=== PATIENT | female | born 1990 | race Caucasian/White ===

== ENCOUNTER → 2017-02-25 | Day surgery (SDC) | payer BC ==
[2017-01-29 09:12] VITALS: Ht 152.4 cm; Wt 43.6 kg
[2017-02-13 12:20] LABS: BASO % 0.7 %; BASO ABS # 0.03 K/uL (0-0.2); COMPLETE YES; EOS % 1.7 %; HEMATOCRIT 39.9 % (37-47); IG% 0.2 %; LYMPH % 30.2 %; LYMPH ABS # 1.27 K/uL (1.2-3.4); MEAN CELL VOLUME 90.3 fL (80-100); MEAN CORPUSCULAR HEMOGLOBIN 32.1 pg (25-34); MEAN CORPUSCULAR HGB CONC 35.6 g/dl (32-36); MEAN PLATELET VOLUME 12.9 fL (7.4-10.4); MONO % 6.7 %; NEUT % 60.5 %; PLATELET COUNT 172 K/uL (130-400); RED BLOOD COUNT 4.42 M/uL (4.2-5.4); WHITE BLOOD COUNT 4.21 K/uL (4.8-10.8)
[~2017-02-25] VITALS: Ht 152.4 cm; Wt 43.6 kg
[~2017-02-25] MED LIST: ATROPINE SULFATE 0.1 MG/ML 5ML SYR IV PRN; BCPILLS PO; CEFAZOLIN 2000 MG/60 ML D5W IV SCH; DEXAMETHASONE SOD INJ 4 MG/ML VIAL ONE; EpHEDrine SULFATE INJ 50 MG/ML AMP IV PRN; FENTANYL CITRATE INJ 50 MCG/1 ML 2 ML VIAL IV PRN; FENTANYL CITRATE INJ 50 MCG/1 ML 2 ML VIAL ONE; HYDROmorphone INJ 1 MG/ML SYR IV PRN; KETOROLAC TROMETHAMINE 30 MG/ML VIAL IV. PRN; KETOROLAC TROMETHAMINE 30 MG/ML VIAL ONE; KUVAN PO; LIDOCAINE HCL 2% 2 ML VIAL (20MG/ML) ONE; LIDOCAINE/EPINEPHRINE 1% INJ 50 ML VIAL ONE; MIDAZOLAM HCL 1 MG/ML 2ML VIAL ONE; ONDANSETRON INJ 2 MG/ML 2 ML VIAL IV PRN; ONDANSETRON INJ 2 MG/ML 2 ML VIAL ONE; OXYCODONE/ACETAMINOPHEN 5-325 TAB PO PRN; PROMETHAZINE HCL INJ 12.5 MG in SODIUM CHLORIDE 0.9% 50ML 50 ML IV PRN; PROMETHAZINE HCL INJ 25 MG in SODIUM CHLORIDE 0.9% 50ML 50 ML IV PRN; PROPOFOL IV EMULSION 10 MG/ML 20 ML VIAL IV ONE; SODIUM CHLORIDE 0.9% 1000ML 1,000 ML IV SCH; [UNRECOGNIZED DRUG - CODE] PO
--- NOTE | 2017-02-25 09:27 | History & Physical Bridge - [place] ---
H&P Re-Evaluation Bridge Note: I have examined the patient, reviewed the History & Physical and in the interval since the performance of the History & Physical I have noted the following changes of clinical significance: Hymenectomy, exam under anesthesia, pap smear.
--- NOTE | 2017-02-25 11:30 | [facility] Post Operative Brief Note ---
Immediate Operative Summary Operative Date Feb 25, 2017. Pre-Operative Diagnosis Tight Hymenal Ring Post-Operative Diagnosis same Procedure(s) Performed Hymenectomy, Pap Smear Surgeon Dr. Radha Bailey [employer]ant Sw[employer] Surgeon(s) Moose Rosa MD Estimated Blood Loss 5ml Findings Tight hymenal ring, vagina otherwise normal. Cervix appears normal. Bimanual exam reveals no obvious masses. Specimens A. Hymen Tissue B. PAP Smear Drains none Anesthesia general Complication(s) None Disposition Recovery Room / PACU
--- NOTE | 2017-02-25 11:32 | Discharge Instructions-SurgCtr ---
Discharge Instructions Date of Service Feb 25, 2017. Visit Reason for Visit: Tight Hymenal Ring Discharge Discharge Diagnosis / Problem: s/p hymenectomy Discharge Goals Goal(s): Diagnostic testing, Therapeutic intervention Activity Recommendations Activity Limitations: per Instructions/Follow-up section Anesthesia . Post Anesthesia Instructions: If you have had General Anesthesia or IV Sedation: * Do not drive today. * Resume driving when surgeon permits. * Do not make important decisions or sign legal documents today. * Call surgeon for: 1. Temperature elevations greater than 101 degrees F. 2. Uncontrollable pain. 3. Excessive bleeding. 4. Persistent nausea and vomiting. 5. Medication intolerance (nausea, vomiting or rash). * For nausea and vomiting use only clear liquids such as: tea, soda, bouillon until nausea subsides, then gradually increase diet as tolerated. * If you have any concerns or questions, call your surgeon's office. If physician is unavailable and it is an emergency, call 911 or go to the nearest emergency room. . Instructions / Follow-Up Instructions / Follow-Up ACTIVITY RECOMMENDATIONS: * Avoid tampons, douching, hot tubs, pools, and intercourse until bleeding has stopped. * May shower as usual. * No strenuous activity for 24-48 hours. After 24-48 hours, you may do anything you feel like doing (driving and sports are okay). SPECIAL CARE INSTRUCTIONS: Special Diet: * Mild nausea may occur in the immediate post-operative period. * Take clear liquids such as tea, cola or bouillon until all nausea has subsided; you may then resume your normal diet. Special Care: * Light bleeding and vaginal spotting can last from a few days to 3-4 weeks. Call your doctor if bleeding becomes heavier than the heaviest part of your period. * Check your temperature twice a day for one week. If it goes above 100.4 degrees Fahrenheit (38.0 Celsius), notify your doctor. * Call your doctor's office for an appointment for 6 weeks after your surgery. FOLLOW-UP VISIT: Call your doctor's office for an appointment for 2 weeks after your surgery. Diet Recommendations Home Diet: resume previous diet Procedures Procedures Performed: Hymenectomy, Pap Smear Pending Studies Studies pending at discharge: yes List of pending studies: pap smear, hymenal tissue - path Medical Emergencies . Who to Call and When: Medical Emergencies: If at any time you feel your situation is an emergency, please call 911 immediately. . Non-Emergent Contact Non-Emergency issues call your: Primary Care Provider, Billing Specialist . . "Provider Documentation" section prepared by Florse Bailey. .
[2017-02-25 12:37] VITALS: TEMP 36.3
--- NOTE | 2017-02-25 12:57 | Anesthesia Progress Nt - [facility] ---
Anesthesia Post Op Note Date & Time Feb 25, 2017 at 12:57 Vital Signs Pain Intensity: 0 Vital Signs Past 12 Hours Date Time Temp Pulse Resp B/P (MAP) Pulse Ox O2 Delivery O2 Flow Rate FiO2 02/25/17 12:37 36.3 85 16 118/78 (91) 100 Room Air 02/25/17 12:30 102/74 02/25/17 12:27 82 14 99 02/25/17 12:27 82 14 02/25/17 12:26 85 18 02/25/17 12:26 84 18 100 02/25/17 12:25 111/78 02/25/17 12:25 36.7 92 13 111/78 100 Room Air 02/25/17 12:21 91 15 02/25/17 12:21 93 15 99 02/25/17 12:20 106/71 02/25/17 12:16 86 23 02/25/17 12:16 84 23 100 02/25/17 12:15 99/67 02/25/17 12:11 86 15 100 02/25/17 12:11 86 15 02/25/17 12:10 101/71 02/25/17 12:06 81 15 02/25/17 12:06 83 15 100 02/25/17 12:05 110/74 02/25/17 12:01 98 12 100 02/25/17 12:01 98 12 02/25/17 12:00 104/73 02/25/17 11:56 92 13 02/25/17 11:56 92 13 100 02/25/17 11:55 106/77 02/25/17 11:51 102 15 02/25/17 11:51 103 15 100 02/25/17 11:50 107/70 02/25/17 11:46 110 18 02/25/17 11:46 37.1 110 20 103/61 100 Mask 8 02/25/17 11:46 110 18 103/67 100 02/25/17 08:23 36.6 99 18 132/92 (105) 98 Room Air Notes Mental Status: alert / awake / arousable, participated in evaluation Pt Amnestic to Procedure: Yes Nausea / Vomiting: adequately controlled Pain: adequately controlled Airway Patency, RR, SpO2: stable & adequate BP & HR: stable & adequate Hydration State: stable & adequate Anesthetic Complications: no major complications apparent
[2017-02-25 13:06] VITALS: BP 106/72; PULSE 88; O2SAT 100
--- NOTE | 2017-02-25 15:27 | OPERATIVE REPORT ---
DATE OF OPERATION: 02/25/2017 PREOPERATIVE DIAGNOSIS: Tight hymenal ring. POSTOPERATIVE DIAGNOSIS: Same. PROCEDURES PERFORMED: Hymenectomy and Pap smear. SURGEON: Dr. Flores Bailey. WORKERS COMPENSATION CONSULTANT: Dr. Rosa. ESTIMATED BLOOD LOSS: 5 mL. FINDINGS: Tight hymenal ring vagina otherwise normal. Cervix appears normal. Bimanual exam reveals no obvious masses. SPECIMENS: Hymen tissue and Pap smear. DRAINS: None. ANESTHESIA: General. COMPLICATIONS: None. DISPOSITION: Stable and good to recovery room. INDICATIONS FOR PROCEDURE: The patient is a 27-year-old G0, who had presented to the office, unable to undergo a previous attempt at speculum exam was unable to use tampons due to severe pain. Exam in the office revealed a tight hymenal ring, and she elected to undergo hymenectomy to treat the problem. Informed consent was obtained in the office under no duress. DESCRIPTION OF PROCEDURE: The patient was seen in the preoperative holding area where risks, benefits, alternatives to surgery were reviewed. She elected to proceed with the procedure. Informed consent had been previously obtained in the office under no duress. She was taken to the operating room where general anesthesia was administered, 2 grams of Ancef were given. She was placed in the dorsal lithotomy position with feet in candy cane stirrups and prepared and draped in usual sterile fashion. At the beginning prior to the procedure, the patient's hymenal ring only allowed admission of one fingertip. Incisions were made in the hymenal tissue as well as relaxing incisions into the vaginal tissue at the introitus at 4 o'clock, 6 o'clock and 8 o'clock as well as small incisions at 2 o'clock and 10 o'clock in the hymenal ring. Bovie cautery was used for hemostasis as well as 1% lidocaine with epinephrine. Excellent hemostasis was observed. At the conclusion of the incisions, vagina was able to admit 2 fingers up to the second knuckle. Excellent hemostasis was achieved. Pap smear was collected and sent to pathology. The patient tolerated the procedure well and was taken to the postoperative area in stable and good condition. I attest to the content of the Intraoperative Record and any orders documented therein. Any exceptions are noted below. [place]
== END | disposition home or self-care (01) ==
LOC: X.SURG 07:51
PROVIDERS: ATTEND Obstetrics & Gynecology
DX: N89.6 Tight hymenal ring (principal); Z30.40 Encounter for surveillance of contraceptives, unspecified; Z82.49 Family history of ischemic heart disease and other diseases of the circulatory system; Z83.49 Family history of other endocrine, nutritional and metabolic diseases; Z83.3 Family history of diabetes mellitus; Z68.1 Body mass index [BMI] 19.9 or less, adult; Z90.89 Acquired absence of other organs